=== PATIENT | male | born 1990 | race Caucasian/White ===

== ENCOUNTER 2024-01-03 19:57 | Emergency (ER) | payer BC ==
[~2024-01-03] VITALS: Ht 180.3 cm; Wt 74.8 kg
--- NOTE | 2024-01-03 20:44 | NUR ---
Patient discharged to home in stable condition on steady gait. Written and verbal after care instructions given. Patient verbalizes understanding of instructions. Stressed follow up or return to ER for worsening s/s.
[2024-01-03 20:45] VITALS: BP 121/70; TEMP 97.8; O2SAT 98
== END 2024-01-03 20:45 | disposition home or self-care (01) ==
LOC: ER 20:10
DX: B35.1 Tinea unguium (principal); Z98.890 Other specified postprocedural states; Z88.0 Allergy status to penicillin
CPT/HCPCS: A4606; A4663